=== PATIENT | female | born 1985 | race Caucasian/White ===

== ENCOUNTER 2016-10-13 00:09 | Observation (INO) | payer OTHER ==
[~2016-10-13] VITALS: Ht 160 cm; Wt 51.8 kg
[~2016-10-13 00:09] MED LIST: KEFLEX500 MG PO; MACROBID100 MG PO; PERCOCET 5/31 TABLET PO; ZOFRAN ODT4 MG PO
[2016-10-13 01:18] LABS: HEMATOCRIT 40.6 % (36.0-46.0); MCH 30.7 PG (29.0-34.0); MCV 90.2 FL (83-99); MEAN PLAT.VOLUME 9.7 uM^3 (9.5-12.4); PLATELET COUNT 277 K/uL (156-360); RBC DIS.WIDTH-SD 49.5 % (39-53); WHITE BLOOD COUNT 13.1 K/uL (4.1-10.2)
[2016-10-13 01:28] LABS: CHLORIDE 100 mEq/L (99-109); POTASSIUM 3.3 mEq/L (3.7-5.4); SODIUM 141 mEq/L (136-147)
[2016-10-13 01:30] LABS: GLUCOSE 105 mg/dL (70-99)
[2016-10-13 01:31] LABS: ANION GAP 17 MEQ/L (2-14)
[2016-10-13 01:32] LABS: TOTAL BILIRUBIN 0.6 mg/dL (0.0-1.0)
[2016-10-13 01:34] LABS: ALKALINE PHOSPHATASE 51 IU/L (3-129); GFR ESTIMATE (CALCULATED) > 59 mL/min/
[2016-10-13 01:35] LABS: UREA NITROGEN (BUN) 19 mg/dL (9-23)
[2016-10-13 01:43] LABS: QUANTITATIVE HCG < 4.0 MIU/ML
[2016-10-13 01:51] LABS: INFLUENZA A VIRAL ANTIGEN NEGATIVE; INFLUENZA B VIRAL ANTIGEN NEGATIVE
[2016-10-13 02:42] LABS: ADD MIUA? YES; BILIRUBIN NEGATIVE; BLOOD NEGATIVE; COLOR YELLOW ((YELLOW)); GLUCOSE (STRIP) NEGATIVE; KETONES 80; LEUKOCYTES NEGATIVE; NITRITE NEGATIVE; PROTEIN (STRIP) 100; SPECIFIC GRAVITY 1.023 (1.000-1.030); UROBILINOGEN 0.2 MG/DL (0.2-1.0)
[2016-10-13 02:51] LABS: ADD MEDTOX COMMENT Y; AMPHETAMINE PRESUMPTIVE POSITIVE (500 ng/mL); BARBITURATES NEGATIVE (200 ng/mL); BENZODIAZEPINES NEGATIVE (150 ng/mL); COCAINE NEGATIVE (150 ng/mL); INTERNAL CONTROLS VALID? YES; METHADONE NEGATIVE (200 ng/mL); METHAMPHETAMINE NEGATIVE (500 ng/mL); OPIATES (MORPHINE) NEGATIVE (100 ng/mL); OXYCODONE PRESUMPTIVE POSITIVE (100 ng/mL); PHENCYCLIDINE NEGATIVE (25 ng/mL); PROPOXYPHENE NEGATIVE (300 ng/mL); THC CANNABINOIDS PRESUMPTIVE POSITIVE (50 ng/mL); TRICYCLIC ANTIDEPRESSANTS NEGATIVE (300 ng/mL)
[2016-10-13 03:11] LABS: EPITHELIAL CELLS 3+ /HPF; MUCUS NONE SEEN /LPF; RED BLOOD CELLS NONE SEEN /HPF (0-5); WHITE BLOOD CELLS 0-5 /HPF (0-5)
[2016-10-13 03:12] LABS: BACTERIA 2+ /HPF; CASTS NONE SEEN /LPF; CRYSTALS NONE SEEN
[2016-10-13 04:15] LABS: SERUM ETHYL ALCOHOL < 10 mg/dL
[2016-10-13 04:18] LABS: LIPASE 16 U/L (1.0-51.0)
[2016-10-13 04:23] VITALS: BP 139/80
[2016-10-13 07:26] VITALS: BP 141/78
[2016-10-13 09:05] LABS: HEMATOCRIT 36.7 % (36.0-46.0); MCV 90.8 FL (83-99); PLATELET COUNT 234 K/uL (156-360); RBC DIS.WIDTH-SD 50.4 % (39-53); RED BLOOD COUNT 4.04 M/uL (3.80-5.20); WHITE BLOOD COUNT 14.8 K/uL (4.1-10.2)
[2016-10-13 09:20] LABS: ALKALINE PHOSPHATASE 38 IU/L (3-129); ANION GAP 10 MEQ/L (2-14); CHLORIDE 104 MEQ/L (99-109); GFR ESTIMATE (CALCULATED) > 59 mL/min/; GLUCOSE 99 mg/dL (70-99); POTASSIUM 3.7 MEQ/L (3.7-5.4); SAMPLE HEMOLYSIS CHECK 0; SAMPLE ICTERIC CHECK 0; SAMPLE LIPEMIA CHECK 0; SODIUM 137 MEQ/L (136-147); TOTAL BILIRUBIN 0.5 MG/DL (0.0-1.0); UREA NITROGEN (BUN) 15 mg/dL (9-23)
[2016-10-13 09:54] LABS: HIV INDEX 0.08; HIV-1/2 AB/AG COMBO Nonreactive
[2016-10-13 11:35] VITALS: BP 122/69
[2016-10-13 16:40] VITALS: BP 126/71
== END 2016-10-13 19:45 | disposition left against medical advice (07) ==
LOC: EME 00:09 → EDOF 03:24 → 5WEST 04:16
PROVIDERS: Internal Medicine; Physician Assistant Medical
DX: R11.2 Nausea with vomiting, unspecified (principal); E86.0 Dehydration; E87.6 Hypokalemia; F17.200 Nicotine dependence, unspecified, uncomplicated; F12.10 Cannabis abuse, uncomplicated; F11.10 Opioid abuse, uncomplicated; F15.10 Other stimulant abuse, uncomplicated
CPT/HCPCS: 80053; 81003; 83690; 84702; 84999; 85027; 86703; 87502; 99281; 99285; G0378; G0480; J1630; J1644; J2405; J2765; J3480; J7030; S0028

== ENCOUNTER 2017-01-27 16:54 | Emergency (ER) | payer OTHER ==
[~2017-01-27] VITALS: Ht 160 cm; Wt 45.0 kg
[2017-01-27] MEDS ORDERED: ZOFRAN ODT4 MG PO (18:47)
[2017-01-27] MEDS ORDERED: TRAZODONE HCL50 MG PO (18:47)
[2017-01-27 19:03] VITALS: BP 128/77
== END 2017-01-27 19:25 | disposition home or self-care (01) ==
LOC: EME 16:54
DX: F11.10 Opioid abuse, uncomplicated (principal); Z59.0 Homelessness; F17.200 Nicotine dependence, unspecified, uncomplicated
CPT/HCPCS: 99281; 99283

== ENCOUNTER 2017-06-28 11:58 | Emergency (ER) | payer SELFPAY ==
[~2017-06-28] VITALS: Ht 160 cm; Wt 58.4 kg
[~2017-06-28 11:58] MED LIST changes: +TRAZODONE HCL50 MG PO
[2017-06-28 15:29] VITALS: BP 125/60
== END 2017-06-28 15:28 | disposition home or self-care (01) ==
LOC: EME 11:58
DX: S61.011A Laceration without foreign body of right thumb without damage to nail, initial encounter (principal); W25.XXXA Contact with sharp glass, initial encounter; Y93.G1 Activity, food preparation and clean up; R11.0 Nausea; Z23 Encounter for immunization; F17.200 Nicotine dependence, unspecified, uncomplicated

== ENCOUNTER 2017-08-09 08:50 | Emergency (ER) | payer SELFPAY ==
[~2017-08-09] VITALS: Ht 160 cm; Wt 62.7 kg
[2017-08-09 09:44] LABS: BASOPHIL (%) 0.1 % (0-1); EOSINOPHIL (%) 0 % (0-5); HEMOGLOBIN 13.4 G/DL (11.9-15.5); IMMATURE GRANULOCYTE (%) 0.4 % (0.0-0.7); LYMPHOCYTE (%) 7.7 % (15-42); LYMPHOCYTE COUNT 1.1 K/uL (1.0-2.8); MCH 30.2 PG (29.0-34.0); MCHC 35.3 G/DL (30.0-36.0); MCV 85.8 FL (83-99); MONOCYTE (%) 3.8 % (3-12); MONOCYTE COUNT 0.5 K/uL (0-0.8); PLATELET COUNT 293 K/uL (156-360); RBC DIS.WIDTH-CV 14.2 % (11.8-14.6); RBC DIS.WIDTH-SD 44.9 % (39-53); RED BLOOD COUNT 4.43 M/uL (3.80-5.20); WHITE BLOOD COUNT 13.6 K/uL (4.1-10.2)
[2017-08-09 09:53] LABS: CHLORIDE 104 mEq/L (99-109); POTASSIUM 3.4 mEq/L (3.7-5.4); SODIUM 137 mEq/L (136-147)
[2017-08-09 09:55] LABS: GLUCOSE 154 mg/dL (70-99); TOTAL PROTEIN 8.3 g/dL (6.4-8.3)
[2017-08-09 09:57] LABS: TOTAL BILIRUBIN 0.4 mg/dL (0.0-1.0)
[2017-08-09 09:59] LABS: ALKALINE PHOSPHATASE 56 IU/L (3-129); CREATININE 0.8 mg/dL (0.6-1.3); GFR ESTIMATE (CALCULATED) > 59 mL/min/
[2017-08-09 10:00] LABS: UREA NITROGEN (BUN) 18 mg/dL (9-23)
[2017-08-09 10:01] LABS: AST (GOT) 20 IU/L (2-34)
[2017-08-09 10:02] LABS: ALT (GPT) 20 IU/L (3-49); LIPASE 16 U/L (1.0-51.0)
[2017-08-09 10:24] LABS: QUANTITATIVE HCG 33456.4 MIU/ML
[2017-08-09] MEDS ORDERED: ZOFRAN4 MG PO (11:43)
[2017-08-09 12:03] VITALS: BP 121/62
== END 2017-08-09 12:20 | disposition home or self-care (01) ==
LOC: EME 08:50
PROVIDERS: Emergency Medicine
DX: O21.9 Vomiting of pregnancy, unspecified (principal); R19.7 Diarrhea, unspecified; Z3A.00 Weeks of gestation of pregnancy not specified; O99.331 Smoking (tobacco) complicating pregnancy, first trimester; F17.200 Nicotine dependence, unspecified, uncomplicated; Z90.49 Acquired absence of other specified parts of digestive tract
CPT/HCPCS: 80053; 83690; 84702; 85025; 99281; 99284; J0780; J2405; J7030